=== PATIENT | male | born 1985 | race Caucasian/White ===

== ENCOUNTER 2025-01-07 11:38 | Outpatient (CLI) | payer OTHER, SELFPAY ==
--- OUTSIDE RECORDS SUMMARY | 2025-01-07 09:30 | XMS_ITS | Encounter Summary ---
Author Organization [facility] Address [address] [facility] [place] [address] Care Team Providers Care Distribution Designer Name Role Phone Humza Cesar MD Primary Care Provider Encounter Details Date Type Department Care Team (Late st Contact Info) Description 01/07/2025 9:30 AM CDT Procedure visit [facility] - [address] [place] [address] Unknown, Provider Social History Tobacco Use Types Packs/Day Years Used Date Smoking Tobacco: Never Assessed Sex and Gender Information Value Date Recorded Sex Assigned at Not on file Legal Sex Male 3:29 PM CDT Gender Identity Not on file Sexual Orientation Not on file documented as of this encounter Plan of Treatment Not on file documented as of this encounter Visit Diagnoses Not on filedocumented in this encounter Care Teams Distribution Designer Relationship Specialty Start Date End Date Humza Cesar MD [address] [facility] [place] [phone] PCP - General Internal Medicine 01/07/25 documented as of this encounter
--- OUTSIDE RECORDS SUMMARY | 2025-01-07 11:30 | XMS_ITS | Encounter Summary ---
Author Organization [facility] [address] [facility] Address [address] [phone] Care Team Providers Care Early Education Teacher Name Role Phone Unavailable Primary Care Provider Unavailabl e Reason for Referral * Radiology Services (Routine) - Open Specialty Diagnoses / Procedures Referred By Irene miller Referred To Contact Diagnoses Leukopenia, unspecified type Procedures US ABDOMEN COMPLETE Ashley Ferguson MD [address] [facility] [address] [place] [address] Phone: tel: fax: Referral ID Status Reason Start Date Expiration Date Visits Re quested Visits Authorized [id number] Open 01/07/2025 02/07/2026 1 1 Reason for Visit * Eval and Treat (Routine) - Authorized Specialty Diagnoses / Procedures Referred By Irene miller Referred To Contact Hematology and Oncology Diagnoses Decreased white blood cell count, unspecified Procedures office level 3-5 Humza Cesar MD [address] [place] [address] [address] [place] [address] Phone: tel: fax: Tong Corral MD [address] [facility] [address] [place] [address] Phone: tel: fax: Referral ID Status Reason Start Date Expiration Date V isits Requested Visits Authorized [id number] Authorized 09/30/2024 03/29/2025 6 6 Encounter Details Date Type Department Care Team (Late st Contact Info) Description 01/07/2025 11:30 AM CDT Office Visit [facility] Oncology and Hematology [place] [address] [place] [address] Ashley Ferguson MD [address] [place] [address] Leukopenia, unspecified type (Primary Dx) Social History Tobacco Use Types Packs/Day Years Used Date Smoking Tobacco: Some Days Cigars Smokeless Tobacco: Never Tobacco Cessation:Ready to Q uit: Not Asked; Counseling Given: Not Answered Alcohol Use Standard Drinks/Week Comments Never 0 (1 standard drink = 0.6 oz pur e alcohol) Sex and Gender Information Value Date Recorded Sex Assigned at Not on file Legal Sex Male 2:08 PM CDT Gender Identity Not on file Sexual Orientation Not on file documented as of this encounter Last Filed Vital Signs Vital Sign Reading Time Taken Comments Blood Pressure 137/84 01/07/2025 11:04 AM CDT Pulse 53 01/07/2025 11:04 AM CDT Temperature 36.3 C (97.3 F) 01/07/2025 11:04 AM CDT Respiratory Rate 14 01/07/2025 11:04 AM CDT Oxygen Saturation 97% 01/07/2025 11:04 AM CDT Inhaled Oxygen Concentration - - Weight 79.2 kg (174 lb 9.6 oz) 01/07/2025 11:04 AM CDT Height 170.2 cm (5' 7) 01/07/2025 11:04 AM CDT Body Mass Index 27.35 01/07/2025 11:04 AM CDT documented in this encounter Plan of Treatment Upcoming Encounters Date Type Department Care Team (Late st Contact Info) Description 02/01/2025 1:00 PM CDT Office Visit [facility] Oncology and Hematology [facility] [address] [place] [address] Tong Corral MD [address] [facility] [address] [place] [address] Scheduled Orders Name Type Priority Associated Diagnoses Orde r Schedule CBC WITH DIFFERENTIAL Lab Stat Leukopenia, unspecified type Expected: 01/07/2025, Expires: 01/07/2026 FLOW CYTOMETRY PANEL Lab Routine Leukopenia, unspecified type Expected: 01/07/2025, Expires: 01/07/2026 IRON, TIBC, AND PERCENT SATURATION Lab Routine Leukopenia, unspecified type Expected: 01/07/2025, Expires: 01/07/2026 FERRITIN Lab Routine Leukopenia, unspecified type Expected: 01/07/2025, Expires: 01/07/2026 VITAMIN B12 AND FOLATE Lab Routine Leukopenia, unspecified type Expected: 01/07/2025, Expires: 01/07/2026 WESTLEY SCREEN W/REFLEX Lab Routine Leukopenia, unspecified type Expected: 01/07/2025, Expires: 01/07/2026 HEPATITIS B CORE AB TOTAL Lab Routine Leukopenia, unspecified type Expected: 01/07/2025, Expires: 01/07/2026 HEPATITIS C ANTIBODY W REFLEX Lab Routine Leukopenia, unspecified type Expected: 01/07/2025, Expires: 01/07/2026 HIV DETECTION W/REFLX CONFIRMATION Lab Routine Leukopenia, unspecified type Expected: 01/07/2025, Expires: 01/07/2026 HEPATITIS B SURFACE ANTIGEN Lab Routine Leukopenia, unspecified type Expected: 01/07/2025, Expires: 01/07/2026 COMPREHENSIVE METABOLIC PANEL Lab Stat Leukopenia, unspecified type Expected: 01/07/2025, Expires: 01/07/2026 US ABDOMEN COMPLETE Imaging Routine Leukopenia, unspecified type Expected: 01/07/2025, Expires: 01/07/2026 documented as of this encounter Visit Diagnoses Diagnosis Leukopenia, unspecified type- Primary documented in this encounter
--- OUTSIDE RECORDS SUMMARY | 2025-01-07 12:17 | XMS_ITS | Clinical Summary ---
Author Organization [facility] Address [address] [facility] [place] [address] Care Team Providers Care Workers Compensation Consultant Name Role Phone Humza Cesar MD Primary Care Provider Source Comments [facility],non-owned Affiliates and Associated Physician Practices is amultiple site organization consisting of ambulatory clinics and hospital sitesin [place], [place], [place] and [place]. This disclosure is being madepursuant to the Care Everywhere program and may not contain all information available regarding this patient. Last updated 18.[facility] Active Problems Problem Noted Date Diagnosed Date Fatty liver 01/07/2025 Encounters Date Type Department Care Team Description 01/07/2025 9:30 AM CDT Procedure visit [facility] - [address] [place] [address] Unknown, Provider 01/07/2025 Orders Only [facility] [address] [place] [address] Akbar Benjamin MD Fatty liver from Last 3 Months Social History Tobacco Use Types Packs/Day Years Used Date Smoking Tobacco: Never Assessed Sex and Gender Information Value Date Recorded Sex Assigned at Not on file Legal Sex Male 3:29 PM CDT Gender Identity Not on file Sexual Orientation Not on file Plan of Treatment Health Maintenance Due Date Last Done Comments HIV SCREENING 2001 HEPATITIS C SCREENING 03/09/2004 DTAP/TDAP/TD VACCINES (1 - Tdap) 2005 HEPATITIS B VACCINE (1 of 3 - 19+ 3-dose series) 2005 HPV VACCINE (1 - 3-dose SCDM series) 2013 DEPRESSION SCREENING 05/06/2024 COVID-19 VACCINE (1 - 2024-2 5 season) 2025 INFLUENZA VACCINE (#1) 2025 ZOSTER VACCINE (1 of 2) 2036 HIB VACCINE Aged Out No longer eligi ble based on patient's age to complete this topic MENINGOCOCCAL (Group B) VACC INE SHARED DECISION-MAKING Aged Out No longer eligibl e based on patient's age to complete this topic MENINGOCOCCAL GROUPS A/C/Y/W VACCINE Aged Out No longer eligible b ased on patient's age to complete this topic PNEUMOCOCCAL VACCINE Aged Out No long er eligible based on patient's age to complete this topic Insurance Care Teams Workers Compensation Consultant Relationship Specialty Start Date End Date Humza Cesar MD [address] [facility] [address] [place] [phone] PCP - General Internal Medicine 01/07/25
--- OUTSIDE RECORDS SUMMARY | 2025-01-07 12:17 | XMS_ITS | Clinical Summary ---
Author Organization [facility] Adriana warren Johnson Address [address] [place] [address] Care Team Providers Care Marker Delivery Name Role Phone Unavailable Primary Care Provider Unavailabl e Allergies Active Allergy Reactions Criticality Noted Date Comments Aspirin Swelling Low 01/07/2025 Medications No known medications Active Problems Problem Noted Date Diagnosed Date Leukopenia 01/07/2025 Encounters Date Type Department Care Team Description 01/07/2025 11:30 AM CDT Office Visit [facility] Oncology and Hematology - [address] [address] Ashley Ferguson MD Leukopenia, unspecified type (Primary Dx) from Last 3 Months Family History Medical History Relation Name Comments No Known Problems Brother 1 No Known Problems Brother 2 No Known Problems Child 1 No Known Problems Child 2 No Known Problems Father Multiple myeloma Mother Relation Name Status Comments Brother 1 Alive Brother 2 Alive Child 1 Alive Child 2 Alive Father Alive Mother Alive Social History Tobacco Use Types Packs/Day Years [...] on file Sexual Orientation Not on file Last Filed Vital Signs Vital Sign Reading [...] Mass Index 27.35 01/07/2025 11:04 AM CDT Plan of Treatment Upcoming Encounters Date Type Department Care Team (Late st Contact Info) Description 02/01/2025 1:00 PM CDT Office Visit [facility] Oncology and Hematology - [place] [address] [facility] [address] [place] [address] Tong Corral MD [address] [facility] [address] [place] [address] Health Maintenance Due Date Last Done Comments Pre-Diabetes and Diabetes Screening 1986 DTAP/TDAP/TD VACCINES (1 - Tdap) 2005 08/03/19 21 HEPATITIS B VACCINES (1 of 3 - 19+ 3-dose series) 01/2005 HPV VACCINES (1 - 3-dose SCDM series) 2013 INFLUENZA VACCINE (#1) 2024 03/29/2020 Insurance [facility]
--- OUTSIDE RECORDS SUMMARY | 2025-01-07 12:17 | XMS_ITS | Encounter Summary ---
Author Organization [facility] Address [address] [facility] [place] [address] Care Team Providers Care Blocker Automatic Name Role Phone Humza Cesar MD Primary Care Provider Reason for Referral * Radiology Services (Routine) - Pending Review Specialty Diagnoses / Procedures Referred By Irene miller Referred To Contact Diagnoses Fatty liver Procedures PROC FIBROSCAN Akbar Benjamin MD [address] [facility] [address] [place] [address] Phone: tel: fax: Referral ID Status Reason Start Date Expiration Date V isits Requested Visits Authorized [id number] Pending Review 01/07/2025 01/07/2026 1 1 Encounter Details Date Type Department Care Team (Late st Contact Info) Description 01/07/2025 Orders Only [facility] [address] [place] [address], [place] [address] Akbar Benjamin MD [address] [place] [address] [address] [place] [address] Fatty liver Social History Tobacco Use Types Packs/Day Years Used Date Smoking Tobacco: Never Assessed Sex and Gender Information Value Date Recorded Sex Assigned at Not on file Legal Sex Male 3:29 PM CDT Gender Identity Not on file Sexual Orientation Not on file documented as of this encounter Plan of Treatment Scheduled Orders Name Type Priority Associated Diagnoses Orde r Schedule PROC FIBROSCAN Procedures Routine Fatty liver Ordered: 01/07/2025 documented as of this encounter Visit Diagnoses Diagnosis Fatty liver- Primary Other chronic nonalcoholic liver disease documented in this encounter Care Teams Blocker Automatic Relationship Specialty [place] [address] [place] [phone] PCP - General Internal Medicine 01/07/25 documented as of this encounter
[2025-01-07 12:23] LABS: Hematocrit 42.0 % (42.0-52.0); Hemoglobin 14.1 g/dL (14.0-18.0); Immature Granulocyte Percent A 0.2 % (0-0.5); Lymphocytes Absolute Auto 1.78 K/mm3 (0.9-3.2); Mean Corpuscular HGB Conc 33.6 g/dl (32-36); Mean Corpuscular Hemoglobin 32.0 pg (26-34); Mean Corpuscular Volume 95.5 fl (80-100); Nucleated Red Blood Cells Absolute Auto 0.000 K/mm3 (0.0-0.012); Nucleated Red Blood Cells Perc 0.0 % (0.0-0.2); Platelet Count Result 145 k/mm3 (150-375); Red Blood Count 4.40 M/mm3 (4.6-6.20); White Blood Count 4.7 K/mm3 (4.5-10.0)
[2025-01-07 16:40] LABS: Alanine Aminotransferase 55 U/L (6-50); Albumin Level 4.4 g/dL (3.5-5.1); Alkaline Phosphatase 84 U/L (38-126); Anion Gap 8 mmol/L (4-12); Aspartate Amino Transferase 70 U/L (17-59); Bilirubin,Total 0.5 mg/dL (0.2-1.3); Blood Urea Nitrogen 25 mg/dL (9-20); Calcium 9.2 mg/dL (8.4-10.2); Carbon Dioxide 27 mmol/L (22-30); Chloride 102 mmol/L (98-107); Estimated Glomerular Filt Rate > 60; Glucose 83 mg/dL (65-110); Potassium 4.4 mmol/L (3.4-5.0); Sodium 137 mmol/L (137-145); Total Protein 7.8 g/dL (6.3-8.2)
[2025-01-07 16:42] LABS: Iron 122 ug/dL (49-181)
[2025-01-07 16:51] LABS: Percent Iron Saturation 48 % (20-50)
[2025-01-07 17:10] LABS: Hepatitis B Surface Antigen Negative (Negative)
[2025-01-07 17:23] LABS: Ferritin 89.70 ng/mL (17.9-464)
[2025-01-07 17:51] LABS: Vitamin B12 927.0 pg/mL (239-931)
[2025-01-08 07:09] LABS: Hep B Core Ab, Total Negative (Negative)
[2025-01-11 10:08] LABS: ANA by IFA Rfx Titer/Pattern Negative (.)
--- NOTE | 2025-01-14 09:26 | CY_PTH ---
PATIENT: Thai Torres LOC: ANHLAB #:[id number] AGE/SX: 39/M ROOM: RE01/07/[address]: Ashley Ferguson MD : 1985 BED: DIS: 01/07/2025 SPEC #: [id number] RECD: 01/14/25 10:25 STATUS: CHUCKIE REQ #: [id number] KADEN: 01/14/25 09:[address]: Ashley Ferguson DEPT: [facility] Cytology RECD BY: Eunice Garcia ENTERED: 01/14/25 10:28 SP TYPE: Cytology OTHR DR: Humza CesarMD Tissues: A - Flow Procedures: Flow Cytometry
== END 2025-01-07 11:39 | disposition home or self-care (01) ==
PROVIDERS: PCP Internal Medicine; Visit Provider Internal Medicine
DX: D72.819 Decreased white blood cell count, unspecified (principal)
CPT/HCPCS: 36415; 80053; 82607; 82728; 82746; 83540; 83550; 85025; 86038; 86704; 86803; 87340; 87535; 87538; 88184

== ENCOUNTER 2025-01-14 09:06 | Outpatient (CLI) | payer OTHER, SELFPAY ==
--- OUTSIDE RECORDS SUMMARY | 2025-01-14 09:48 | XMS_ITS | Clinical Summary ---
Author Organization [facility] Adriana warren Johnson Address [address] [place] [address] Care Team Providers Care Production Support Analyst Name Role Phone Unavailable Primary Care Provider Unavailabl e Allergies Active Allergy Reactions Criticality Noted Date Comments Aspirin Swelling Low 01/07/2025 Medications No known medications Active Problems Problem Noted Date Diagnosed Date Leukopenia 01/07/2025 Encounters Date Type Department Care Team Description 01/12/2025 External Device Data ST[facility] ABSTRACTION Provider, Abstract 01/12/2025 Abstract [facility] Oncology [facility] [address] [place] [phone] Tong Corral MD 01/12/2025 External Device Data [facility] ABSTRACTION Provider, Abstract 01/12/2025 External Device Data [facility] ABSTRACTION Provider, Abstract 01/07/2025 11:30 AM CDT Office Visit [facility] Oncology [facility] [address] [place] [address] Ashley Ferguson MD Leukopenia, unspecified type (Primary [...] Description 02/01/2025 1:00 PM CDT Office Visit [facility] Oncology and Hematology - [place] [address] [facility] [address] [place] [address] Tong Corral MD [address] [facility] [address] [place] [address] Health Maintenance Due Date Last Done Comments Pre-Diabetes and Diabetes Screening 1986 HEPATITIS B VACCINES (1 of 3 - 19+ 3-dose series) 01/2005 HPV VACCINES (1 - 3-dose SCDM series) 2013 INFLUENZA VACCINE (#1) 2024 03/29/2020 DTAP/TDAP/TD VACCINES (2 - Td or Tdap) 08/02/2030 Insurance [facility]
--- OUTSIDE RECORDS SUMMARY | 2025-01-14 09:48 | XMS_ITS | Encounter Summary ---
Author Organization [facility] Address [address] [place] [address] Care Team Providers Care Cigar Binder Name Role Phone Unavailable Primary Care Provider Unavailabl e Encounter Details Date Type Department Care Team (Late st Contact Info) Description 01/12/2025 External Device Data [facility] ABSTRACTION Provider, Abstract NO ADDRESS ON FILE Social History Tobacco Use Types Packs/Day Years Used Date Smoking Tobacco: Some Days Cigars Smokeless Tobacco: Never Alcohol Use Standard Drinks/Week Comments Never 0 (1 standard drink = 0.6 oz pur e alcohol) Sex and Gender Information Value Date Recorded Sex Assigned at Not on file Legal Sex Male 2:08 PM CDT Gender Identity Not on file Sexual Orientation Not on file documented as of this encounter Plan of Treatment Upcoming Encounters Date Type Department Care Team (Late st Contact Info) Description 02/01/2025 1:00 PM CDT Office Visit [facility] Oncology and Hematology - [place] [address] [place] [address] [facility] [address] [place] [address] Tong Corral MD [address] [facility] [address] [place] [address] documented as of this encounter Visit Diagnoses Not on filedocumented in this encounter
== END 2025-01-14 09:07 | disposition home or self-care (01) ==
PROVIDERS: PCP Internal Medicine; Visit Provider Internal Medicine
DX: D72.819 Decreased white blood cell count, unspecified (principal)
CPT/HCPCS: 36415